=== PATIENT | male | born 1990 | race Two or more races ===

== ENCOUNTER 2025-01-19 20:10 | Emergency (ER) | payer MEDICAID, SELFPAY ==
[2025-01-19 20:11] VITALS: BMI 30.4
--- NOTE | 2025-01-19 20:22 | XR_ITS ---
Examination: Shoulder,right, 3 views Technique: Shoulder AP internal rotation, AP external rotation, Y view shoulder, 3 views Exam date and time :January 19, 2025 23 6 hours INDICATIONS: Patient fell today with injury to the right shoulder, right shoulder pain. FINDINGS: 14 mm AC joint separation No shoulder fracture or dislocation IMPRESSION: Prominent AC joint separation
[2025-01-19 21:31] VITALS: BP 167/79; PULSE 100; RESP 18; TEMP 36.9; O2SAT 95
--- NOTE | 2025-01-19 21:44 | PD.EDUPEX ---
Upper Extremity Injury RME/HPI General Chief Complaint: Extremity Injury, Upper Stated Complaint: POSSIBLE RT SHOULDER DISLOCATION Time Seen by Provider: 01/19/25 21:35 Arrival date/time: 01/19/25 20:10 RME / HPI RME / HPI narrative: 34-year-old male patient came in for evaluation regarding fall about 2 feet high landing on the right shoulder, resulting in the pain to the right AC joint. Denies any LOC denies any neck pain denies any other injury. Patient is ambulatory. Denies any shortness of breath also. No medications taken prior to arrival. Related Data Previous Rx's ?Medication ?Instructions ?Recorded loratadine 10 mg tablet 10 mg PO QDAY PRN ALLERGY #30 tabs 10/12/13 ibuprofen 800 mg tablet 800 mg PO TID PRN pain #30 tabs 01/19/25 Allergies Allergy/AdvReac Type Severity Reaction Status Date / Time No Known Allergies Allergy Mild Uncoded 02/21/09 16:33 Review of Systems Review of Systems Narrative Review of Systems: Review of system reviewed and within normal limits except mentioned in HPI ED Exam Narrative Physical exam: VITAL SIGNS: Reviewed. GENERAL APPEARANCE: Alert and interactive, follows commands, no acute distress, HEAD AND FACE: Non-traumatic. ENT: PERRL, pink conjunctivitis, eyelid no trauma, Mucous membrane moist. NECK: Supple, nontender, no nuchal rigidity. CHEST: No tenderness, no crepitus, no paradoxical movement, no retractions. LUNGS: Clear, well ventilated, symmetric, no rales, no wheezing, no ronchi, no stridor, good breath sounds bilaterally. HEART: Regular rate, regular rhythm, no murmur, no gallops. ABDOMEN: Soft, positive bowel sounds, nondistended, no guarding, nontender, no rebound, no masses, RECTAL: Deferred. GENITAL: Deferred. NEUROLOGICAL: Gross motor function intact sensory function intact, Appropriate for age. MUSCULOSKELETAL: low back nontender, full range of motion. Right AC joint tenderness, with deformity EXTREMITIES: Nontender, full range of motion. SKIN: Color pink, dry, no rash, no lacerations, no abrasions, no contusions. LYMPHATICS: Deferred. Course Quality Measures none Orders Category Date Time Status XR shoulder RT min 2V Stat Exams 01/19/25 20:22 Completed Vital Signs Vital signs: Vital Signs Temperature 98.4 F 01/19/25 21:31 Pulse Rate 100 01/19/25 21:31 Respiratory Rate 18 01/19/25 21:31 Blood Pressure 167/79 H 01/19/25 21:31 Pulse Oximetry (%) 95 01/19/25 21:31 Oxygen Delivery Method Room Air 01/19/25 21:31 Extremity Injury [facility] Narrative [facility] Narrative:: 34-year-old male patient came in for evaluation regarding fall about 2 feet high landing on the right shoulder, resulting in the pain to the right AC joint. Denies any LOC denies any neck pain denies any other injury. Patient is ambulatory. Denies any shortness of breath also. No medications taken prior to arrival. X-ray of the shoulder joints showed 14 mm separation of the AC joints. No fracture or dislocation noted. Patient was placed on an arm sling. Patient was advised to follow-up with PCP. And for referral to orthopedic surgeon. Patient stable for discharge home. Patient data External records reviewed:: None Clinical information provided by:: patient Social determinants that could affect healthcare access:: none Patient has the following chronic illnesses:: None How is presenting disease/condition affected by chronic disease/condition?: no chronic disease Evaluation data The following diagnostics were reviewed and interpreted by me:: radiology exam(s) Lab and/or radiology exams considered but not ordered:: None Interpretation Summary: See results in MDM Medications / Prescriptions Medications or Prescriptions considered but not ordered:: None Medication administrations:: None Consultations Consultation(s) initiated? (list below): No Diagnosis Upper Extremity Injury Differential Diagnosis: dislocation of shoulder, fracture of humerus, fracture of clavicle and other Most likely diagnosis given after review of the tests above:: Right AC separation Admission Indicated Admission indicated?: not indicated Explain why admission is indicated or not indicated:: None Admission Request Was there a request for admission?: No Disposition Plan Disposition Plan: Discharge Discharge Attestation Discharge Attestation: The patient and all family members were given an opportunity to ask questions and understood the discharge instructions. Discharge instructions specifically effects, indications for sooner follow up or return to the emergency department, and the expected course of current diagnosis. Patient condition: Stable Discharge Plan Plan Patient Disposition: HOME (Self Care) Disposition Comment: Stable Prescriptions/Referrals Prescriptions/Med Rec: New ibuprofen 800 mg tablet 800 mg PO TID PRN (Reason: pain) Qty: 30 0RF No Action loratadine 10 MG tablet 10 mg PO QDAY PRN (Reason: ALLERGY) Qty: 30 0RF Problem List Clinical Impression: Separation of right acromioclavicular joint, Fall Patient/Caregiver Discharge Instructions Discharge Activity: activity as tolerated Education Materials: ED Joint Dislocation Additional Instructions: Thank you for the opportunity for serving you today. You are stable for discharged . You are advised to: Follow-up with your PCP in 1 to 2 days Return to ED for worsening of symptoms Increase oral fluids Take medication as prescribed Wear your arm sling for at least 3 weeks. Print Language: Bangladeshi Stand Alone Forms: Angelique Award Info., Work/School Release, Patient Portal Info Letter PA/SALAZAR Supervising Physician PA/SALAZAR Supervising Physician: MD Rebecca
== END 2025-01-19 22:00 | disposition home or self-care (01) ==
PROVIDERS: Emergency Provider Emergency Medicine
DX: S43.101A Unspecified dislocation of right acromioclavicular joint, initial encounter (principal); W17.89XA Other fall from one level to another, initial encounter
CPT/HCPCS: 73030; 99283